=== PATIENT | female | born 1960 | race Caucasian/White ===

== ENCOUNTER 2019-08-09 13:44 | Outpatient (CLI) | payer OTHER ==
--- NOTE | 2019-08-09 14:07 | RAD ---
XR Knee Rt 2 View HISTORY: Disability evaluation. Right knee pain. Pointing osteoarthritis FINDINGS: No fracture or dislocation is identified. Mild degenerative changes are present.
--- NOTE | 2019-08-09 14:09 | RAD ---
XR Hip Rt 2-3 View HISTORY: Disability evaluation, right pain. Osteoarthritis FINDINGS: No fracture or dislocation is identified. Mild degenerative changes are present.
== END 2019-08-09 13:45 | disposition home or self-care (01) ==
LOC: NAV RAD 13:44
PROVIDERS: ATTEND Family Medicine
DX: Z02.71 Encounter for disability determination (principal); M15.9 Polyosteoarthritis, unspecified